=== PATIENT | female | born 1985 | race Caucasian/White ===

== ENCOUNTER 2017-11-16 17:49 | Emergency (ER) | payer OTHER ==
--- NOTE | 2017-11-16 19:34 | ED Physician Documentation ---
PD HPI FEMALE - Stated complaint Stated Complaint: FEM - Chief complaint Chief Complaint: Abd Pain - History obtained from History obtained from: Patient - History of Present Illness Timing - onset: How many days ago (4-5) Timing - duration: Days Timing - details: Abrupt onset, Still present (pain left lower abd and hurt more with intercourse and exercise.) Associated symptoms: Abdominal pain. 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 They did not have U/S capable at that time.) Review of Systems Constitutional: denies: Fever Nose: denies: Rhinorrhea / runny nose, Congestion Throat: denies: Sore throat Respiratory: denies: Cough GI: reports: Abdominal Pain, Nausea. 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: None : None HEENT: None Psych: None Musculoskeletal: None Derm: None - Past Surgical History Past Surgical History: No - Present Medications Home Medications: Ambulatory Orders Medication Instructions Recorded Confirmed Pnv No.122/Iron/Folic Acid 11/16/17 [ Multi Tablet] - Allergies Allergies/Adverse Reactions: Allergies Allergy/AdvReac Type Severity Reaction Status Date / Time No Known Drug Allergies Allergy Verified 11/16/17 18:10 - Social History Does the pt smoke?: No Smoking Status: Never smoker Does the pt drink ETOH?: Yes Does the pt have substance abuse?: No - Immunizations Immunizations are current?: Yes - POLST Patient has POLST: No PD ED PE NORMAL - Vitals Vital signs reviewed: Yes - General General: Alert and oriented X 3, No acute distress, Well developed/nourished - Neck Neck: Supple, no meningeal sign, No adenopathy - Cardiac Cardiac: RRR, No murmur - Respiratory Respiratory: Clear bilaterally - Abdomen Abdomen: Normal bowel sounds, Soft, Non distended, No organomegaly, Other ( tender LLQ without guarding nor percussion tenderness. ) - Female Female : Deferred - Rectal Rectal: Deferred - Back Back: No CVA TTP - Derm Derm: Normal color, Warm and dry, No rash Results - Vitals Vitals: Vital Signs - 24 hr 11/16/17 11/16/17 11/16/17 18:00 19:27 22:28 Temperature 36.6 C 36.7 C 36.4 C L Heart Rate 57 L 52 L 64 Respiratory 16 16 16 Rate Blood Pressure 120/68 128/71 O2 Saturation 99 100 100 Oxygen O2 Source Room air - Labs Labs: Laboratory Tests 11/16/17 11/16/17 19:10 19:10 Urine Color YELLOW Urine Clarity CLEAR Urine pH 5.5 Ur Specific [place] 1.025 1.025 Urine Protein NEGATIVE Urine Glucose (UA) NEGATIVE Urine Ketones NEGATIVE Urine Occult Blood NEGATIVE Urine Nitrite NEGATIVE Urine Bilirubin NEGATIVE Urine Urobilinogen 0.2 (NORMAL) Ur Leukocyte Esterase NEGATIVE Ur Microscopic Review NOT INDICATED Urine Culture Comments NOT INDICATED Urine HCG, Qual NEGATIVE - Rads (name of study) pelvic U/S Radiology: Prelim report reviewed (4.3 cm complex cyst left ovary c/w hemorrhagic cyst or endometroma) PD MEDICAL DECISION MAKING - ED course Complexity details: reviewed results (complex cyst (hemorrhagic) left ovary.), considered differential (had pelvic yesterday in office without note of infection, so defer pelvic here. pain presumed from hemorrhagic cyst on left. ) , d/w patient Departure - Departure Disposition: 01 Home, Self Care Clinical Impression: Pelvic pain, Complex cyst of left ovary Condition: Stable Record reviewed to determine appropriate education?: Yes Instructions: ED Cyst Ovarian Follow-Up: [facility] [Provider Group] Comments: Continue the ibuprofen and he can use 600-800 mg 3 times a day for inflammation and pain. To this add Tylenol if needed for pain every 4 hours. Follow-up with your primary care if not improved over the next several days to week. Most ovarian cyst recede on their own over several weeks through the hormonal cycle. If the discomfort persists they can repeat the ultrasound at an interval and see if it is getting bigger or other problems. Discharge Date/Time: 11/16/17 22:35
[2017-11-16 19:50] LABS: BILIRUBIN,URINE NEGATIVE (NEGATIVE); CLARITY,URINE CLEAR (CLEAR); GLUCOSE, URINE (UA) NEGATIVE (NEGATIVE); KETONES,URINE (UA) NEGATIVE (NEGATIVE); LEUKOCYTE ESTERASE, URINE NEGATIVE (NEGATIVE); NITRITE,URINE NEGATIVE (NEGATIVE); OCCULT BLOOD,URINE NEGATIVE (NEGATIVE); PH,URINE 5.5 PH (5.0-7.5); PROTEIN,URINE NEGATIVE (NEGATIVE); UROBILINOGEN,URINE 0.2 (NORMAL) E.U./dL (NORMAL)
[2017-11-16 19:54] LABS: HCG UR QUAL NEGATIVE
--- NOTE | 2017-11-16 21:34 | Ultrasound Preliminary Report ---
Exam: US PELVIC W/TRANSVAG+DOPPLER LTD IMPRESSION: 1. Complex 4.2 cm left ovarian cyst compatible with a hemorrhagic cyst or endometrioma. 2. Normal uterus and right ovary. [facility] SITE ID: [id number]
--- NOTE | 2017-11-16 21:35 | Ultrasound Report ---
EXAM: PELVIC ULTRASOUND EXAM DATE: 11/16/2017 09:17 PM. CLINICAL HISTORY: Lower abd pain for few days. COMPARISON: None. TECHNIQUE: Realtime transabdominal pelvic scan performed to identify the uterus and adnexa and as an overview of other pelvic structures, followed by transvaginal scan to provide greater detail of the u terus and adnexa, with static image documentation. FINDINGS: Uterus: 6.3 x 2.8 x 4.0 cm, volume 37.1 cc. Anteverted position. Normal overall size and echotexture. Masses: None. Endometrium: 8 mm. Normal. Cervix: Unremarkable. Right Ovary: 4 x 2.4 x 2.7 cm, volume 13.7 cc. Normal echotexture and blood flow. Left Ovary: 5.7 x 4.2 x 4.0 cm, volume 49.2 cc. There is a 4.2 x 3.8 x 4.2 cm cyst within the left ov niharika containing avascular, low level internal echoes. Normal ovarian flow. Free Fluid: Trace free fluid considered physiologic. Other: None. IMPRESSION: 1. Complex 4.2 cm left ovarian cyst compatible with a hemorrhagic cyst or endometrioma. 2. Normal uterus and right ovary. [facility] Referring Provider Line: [phone] SITE ID: [id number]
[2017-11-16 22:29] VITALS: BP 128/71
== END 2017-11-16 22:35 | disposition home or self-care (01) ==
LOC: ED 17:49
DX: N83.202 Unspecified ovarian cyst, left side (principal); R10.2 Pelvic and perineal pain
CPT/HCPCS: 76830; 76856; 81001; 81003; 81025; 87086; 93976; 99283

== ENCOUNTER 2018-04-03 20:14 | Emergency (ER) | payer OTHER ==
[2018-04-03 20:39] LABS: BILIRUBIN,URINE NEGATIVE (NEGATIVE); CLARITY,URINE CLEAR (CLEAR); GLUCOSE, URINE (UA) NEGATIVE (NEGATIVE); KETONES,URINE (UA) NEGATIVE (NEGATIVE); LEUKOCYTE ESTERASE, URINE NEGATIVE (NEGATIVE); NITRITE,URINE NEGATIVE (NEGATIVE); OCCULT BLOOD,URINE TRACE-INTA (NEGATIVE); PH,URINE 7.5 PH (5.0-7.5); PROTEIN,URINE NEGATIVE (NEGATIVE); UROBILINOGEN,URINE 0.2 (NORMAL) E.U./dL (NORMAL)
--- NOTE | 2018-04-03 20:43 | ED Physician Documentation ---
PD HPI FEMALE - Stated complaint Stated Complaint: SPOTTING/CRAMPING/UNK WKS PREG - Chief complaint Chief Complaint: Abd Pain - History obtained from History obtained from: Patient, Family - History of Present Illness Timing - onset: Today Timing - duration: Days (1) Timing - details: Gradual onset Pain level max: 2 Pain level max: 2 Associated symptoms: Pelvic pain (Mild cramping), Vaginal bleeding (Spotting today). 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: Breast reduction - Present Medications Home Medications: Ambulatory Orders Medication Instructions Recorded Confirmed Pnv No.122/Iron/Folic Acid 11/16/17 [ Multi Tablet] - Allergies Allergies/Adverse Reactions: Allergies Allergy/AdvReac Type Severity Reaction Status Date / Time No Known Drug Allergies Allergy Verified 04/03/18 20:20 - Social History Does the pt smoke?: No Smoking Status: Never smoker Does the pt drink ETOH?: Yes Does the pt have substance abuse?: No - Immunizations Immunizations are current?: Yes - POLST Patient has POLST: No PD ED PE NORMAL - Vitals Vital signs reviewed: Yes - General General: Alert and oriented X 3, No acute distress - HEENT HEENT: Moist mucous membranes - Neck Neck: Supple, no meningeal sign - Cardiac Cardiac: RRR - Respiratory Respiratory: No respiratory distress, Clear bilaterally - Abdomen Abdomen: Soft, Non tender, Non distended - Female Female : Pt declined - Back Back: No CVA TTP - Derm Derm: Warm and dry, No rash - Extremities Extremities: No edema - Neuro Neuro: Alert and oriented X 3 Results - Vitals Vitals: Vital Signs - 24 hr 04/03/18 20:15 Temperature 36.3 C L Heart Rate 57 L Respiratory 15 Rate Blood Pressure 129/62 O2 Saturation 100 Oxygen O2 Source Room air - Labs Labs: Laboratory Tests 04/03/18 20:25 Urine Color YELLOW Urine Clarity CLEAR Urine pH 7.5 Ur Specific [place] <=1.005 Urine Protein NEGATIVE Urine Glucose (UA) NEGATIVE Urine Ketones NEGATIVE Urine Occult Blood TRACE-INTA Urine Nitrite NEGATIVE Urine Bilirubin NEGATIVE Urine Urobilinogen 0.2 (NORMAL) Ur Leukocyte Esterase NEGATIVE Urine RBC Cancelled Urine WBC Cancelled Urine WBC Clumps Cancelled Ur Epithelial Cells Cancelled Ur Squamous Epith Cells Cancelled Urine Crystals Cancelled Amorphous Sediment Cancelled Urine Bacteria Cancelled Urine Casts Cancelled Urine Starch Cancelled Urine Mucus Cancelled Urine Trichomonas Cancelled Urine Yeast Cancelled Urine Sperm Cancelled Ur Oval Fat Bodies Cancelled Ur Microscopic Review NOT INDICATED Urine Culture Comments NOT INDICATED Urine HCG, Qual Cancelled - Rads (name of study) OB ultrasound Radiology: Prelim report reviewed, EMP read contemporaneously, See rad report (Single viable intrauterine at EGA 6 weeks 4 days with GERALDINE 11/23/2018 based on crown-rump length, which is concordant with clinical dates. ) PD MEDICAL DECISION MAKING - ED course Complexity details: reviewed results, re-evaluated patient, considered differential, d/w patient, d/w family ED course: Patient is a 32-year-old female, 1 para 0 who presents to the emergency department with spotting today. She is approximately 6 weeks and 4 days with and IUP and FHR on US. No evidence of ectopic. HCG is 36,000. We will have her follow-up with OB for further care. Patient and family counseled regarding signs and symptoms for which I believe and urgent re-evaluation would be necessary. Patient with good understanding of and agreement to plan and is comfortable going home at this time This document was made in part using voice recognition software. While efforts are made to proofread this document, sound alike and grammatical errors may occur. - Sepsis Event Vital Signs: Vital Signs - 24 hr 04/03/18 20:15 Temperature 36.3 C L Heart Rate 57 L Respiratory 15 Rate Blood Pressure 129/62 O2 Saturation 100 Oxygen O2 Source Room air Departure - Departure Disposition: 01 Home, Self Care Clinical Impression: Threatened affecting intrauterine Condition: Good Instructions: ED Miscarriage Poss Follow-Up: Skylar Proctor MD [Provider Admit Priv/Credential] - Within 3 Days Comments: Follow-up with [facility] within 3 days for repeat hCG to ensure it is increasing. You are at 36,000 today. Your ultrasound reveals an intrauterine with an estimated date of 6 weeks and 4 days for an estimated delivery date of 11/23/2018. You may use Tylenol as needed for pain. Return if you worsen
[2018-04-03 20:54] LABS: BASOPHILS # (AUTO) 0.2 10^3/uL (0.0-0.1); BASOPHILS % (AUTO) 2.3 %; EOSINOPHILS % (AUTO) 0.6 %; HGB - HEMOGLOBIN 12.9 g/dL (12.0-16.0); LYMPHOCYTES # (AUTO) 2.2 10^3/uL (1.5-3.5); LYMPHOCYTES % (AUTO) 26.6 %; MEAN CORPUSCULAR HEMOGLOBIN 32.8 pg (27.0-31.0); MEAN CORPUSCULAR HGB CONC 34.8 g/dL (32.0-36.0); MEAN CORPUSCULAR VOLUME 94.1 fL (81.0-99.0); MEAN PLATELET VOLUME 8.2 fL (7.9-10.8); MONOCYTES # (AUTO) 0.5 10^3/uL (0.0-1.0); MONOCYTES % (AUTO) 5.7 %; NEUTROPHILS # (AUTO) 5.3 10^3/uL (1.5-6.6); NEUTROPHILS % (AUTO) 64.8 %; PLT - PLATELET COUNT 255 10^3/uL (130-450); RED BLOOD COUNT 3.92 10^6/uL (4.20-5.40); RED CELL DISTRIBUTION WIDTH 12.7 % (12.0-15.0); WHITE BLOOD COUNT 8.2 x10^3/uL (4.8-10.8)
[2018-04-03 21:18] LABS: ALBUMIN 4.2 g/dL (3.2-5.5); ALBUMIN/GLOBULIN RATIO 1.7 (1.0-2.2); BILIRUBIN,TOTAL 0.4 mg/dL (0.2-1.0); CALCIUM 8.6 mg/dL (8.5-10.3); CREATININE 0.6 mg/dL (0.4-1.0); TOTAL PROTEIN 6.7 g/dL (6.7-8.2)
--- NOTE | 2018-04-03 21:57 | Ultrasound Report ---
Reason: + preg, vag bleed Procedure Date: 04/03/2018 Accession Number: [id number] / [id number] Procedure: US - OB First Trimester CPT Code: FULL RESULT: EXAM: FIRST TRIMESTER OBSTETRIC ULTRASOUND (Less than 11 weeks) EXAM DATE: 04/03/2018 08:50 PM. CLINICAL HISTORY: + preg, vag bleed. LMP: 02/07/2018. COMPARISONS: None. TECHNIQUE: Transabdominal and transvaginal ultrasound examination with static image documentation. CLINICAL DATES: EGA 7 weeks 6 days with GERALDINE 11/14/2018 based on LMP. ASSESSMENT: Gestational Sac: Single intrauterine. Mean gestational sac diameter: 24 mm = weeks/days. Embryo: CRL (crown-rump length) 7 mm = 6 weeks 4 days. Cardiac activity: 127 beats per minute. Yolk sac: 5 mm. Amniotic fluid: Not accurately assessed at this gestational age. Early placenta: Not visible at this gestational age. Other: No perigestational fluid collection demonstrated. MATERNAL STRUCTURES: Uterus: Retroverted. Unremarkable. Cervix: Closed. Right Ovary/Adnexa: The ovary measures 3.4 x 2.7 x 3.2 cm, volume 15.7 cc. Contains a 1.8 cm corpus luteal cyst.. Left Ovary/Adnexa: The ovary measures 2.9 x 1.8 x 2.1 cm, volume 5.7 cc. Unremarkable. Free Fluid: None. Other: None. IMPRESSION: 1. Single viable intrauterine at EGA 6 weeks 4 days with GERALDINE 11/23/2018 based on crown-rump length, which is concordant with clinical dates. [facility]
[2018-04-03 21:58] VITALS: BP 104/50
== END 2018-04-03 22:32 | disposition home or self-care (01) ==
LOC: ED 20:14
DX: O20.0 Threatened abortion (principal); Z3A.01 Less than 8 weeks gestation of pregnancy
CPT/HCPCS: 76801; 76817; 80053; 81001; 81003; 81025; 83690; 84702; 85025; 87086; 99283